=== PATIENT | female | born 1975 | race Caucasian/White ===

== ENCOUNTER 2020-06-11 17:39 | Emergency (ER) | payer BC, OTHER ==
[~2020-06-11] VITALS: Ht 170.2 cm; Wt 82.0 kg
[2020-06-11 19:21] LABS: ALBUMIN 4.1 g/dL (3.4-5.0); CALCIUM 8.6 mg/dL (8.5-10.1); CHLORIDE 108 mmol/L (98-107)
[2020-06-11 19:30] LABS: ALANINE AMINOTRANSFERASE 15 U/L (12-78); ALKALINE PHOSPHATASE 64 U/L (45-117); ANION GAP 9 mmol/L (5-15); BILIRUBIN,TOTAL 0.4 mg/dL (0.2-1.0); CREATININE 0.68 mg/dL (0.55-1.02); TOTAL PROTEIN 8.2 g/dL (6.4-8.2)
[2020-06-11 19:39] LABS: BASOPHILS % (AUTO) 1 % (0-1); EOSINOPHILS % (AUTO) 0 % (1-7); LYMPHOCYTES % (AUTO) 10 % (22-44); MEAN CORPUSCULAR HEMOGLOBIN 19.2 pg (27.0-34.8); MEAN CORPUSCULAR HGB CONC 30.8 g/dL (32.4-35.8); MEAN PLATELET VOLUME 7.2 fL (7.4-10.4); MONOCYTES % (AUTO) 3 % (2-9); NEUTROPHILS % (AUTO) 86 % (42-75); PLATELET COUNT 317 x10^3/uL (130-400); RED BLOOD COUNT 4.65 x10^6/uL (3.82-5.3); RED CELL DISTRIBUTION WIDTH 19.3 % (9.6-15.2)
[2020-06-11 19:40] LABS: MD MORPH REVIEW ONLY
[2020-06-11] MEDS ORDERED: ONDANSETRON 2MG/ML, 2ML ONE (19:46)
[2020-06-11] MEDS ORDERED: MORPHINE SULFATE 4 MG/ML, 1ML ONE ×2 (19:47→22:55)
[2020-06-11 19:52] LABS: MICROSCOPIC AUTO
[2020-06-11] MEDS: MORPHINE SULFATE 4 MG/ML, 1ML IVPush PRN ×2 (19:54→22:57)
--- NOTE | 2020-06-11 19:56 | NUR ---
PIV PLACED. MEDS ADMIN PER OCT. PT ONLY AGREED TO PULSEOX MONITORING. REFUSING BP.
[2020-06-11] MEDS ORDERED: ONDANSETRON 2MG/ML, 2ML IVPush ONE (20:00)
[2020-06-11 20:31] LABS: MICROCYTOSIS 2+
[2020-06-11 20:32] LABS: HYPOCHROMIA 3+
[2020-06-11 20:33] LABS: OVALOCYTES 1+
[2020-06-11 20:34] LABS: <PLATELET ESTIMATE> ADEQUATE; <PLT MORPHOLOGY> NORMAL PLT MORPH; TARGET CELLS 1+
--- NOTE | 2020-06-11 20:52 | NUR ---
PT TO US. N/O RECEIVED FOR CT.
--- NOTE | 2020-06-11 22:05 | NUR ---
PT RESTING COMFORTABLY ON GURNEY. NADN. PT REFUSING BP.
--- NOTE | 2020-06-11 22:09 | NUR ---
PER RADIOLOGY, US IN LINE TO BE READ.
--- NOTE | 2020-06-11 22:30 | NUR ---
PER RADIOLOGY, US BEING READ AT THIS TIME.
--- NOTE | 2020-06-11 23:05 | NUR ---
PT C/O 03/15 PAIN. SECOND DOSE MORPHINE GIVEN. REPORT GIVEN TO HERMILO BOOKER.
[2020-06-11] MEDS ORDERED: OMNIPAQUE 350 MG/ML, 100ML BOTTLE ONE (23:11)
--- NOTE | 2020-06-11 23:22 | NUR ---
PT BACK FROM US AT THIS TIME. REPORT OF PT RECEIVED FROM JHONY JUAREZ AND ASSUMING CARE OF PT AT THIS TIME.
[2020-06-12 00:24] VITALS: BP 145/75
--- NOTE | 2020-06-12 00:24 | NUR ---
PT D/C WITH DC/ SUMMARY IN CARE OF SPOUSE. PT PROVIDED WHEELCHAIR AND PT WHEELED TO LOBBY FOR D/C HOME IN PRIVATE VEHICLE. PT QUESTIONS ANSWERED. PT IV D/C WITH TIP INTACT. PT VSS AND UPDATED IN EMR PRIOR TO D/C. PT DENIES ANY OTHER NEEDS PERTAINING TO THIS VISIT.
== END 2020-06-12 00:26 | disposition home or self-care (01) ==
LOC: ED 20:43
DX: N83.292 Other ovarian cyst, left side (principal); R10.32 Left lower quadrant pain; R11.2 Nausea with vomiting, unspecified
CPT/HCPCS: 36415; 74177; 76830; 80053; 81001; 83690; 84703; 85025; 96374; 96375; 96376; 99285; J2270; J2405; Q9967